=== PATIENT | male | born 1935 | race Caucasian/White ===

== ENCOUNTER 2021-02-16 13:01 | Outpatient (CLI) | payer MEDICARE, SELFPAY ==
--- NOTE | ~2021-02-16 | CT_ITS ---
EXAMINATION: CT brain wo con EXAM DATE: 02/16/2021 13:33 INDICATION: Dementia. TECHNIQUE: Spiral CT of the head was performed without contrast. Axial, coronal and sagittal images were reviewed. The dose-length product (DLP) for this examination was 605.33 mGy-cm. The exposure w as tailored according to patient size, and iterative reconstruction (ASIR) was used as additional dos e reduction technique. There is no prior study for comparison. FINDINGS: There is no acute intraparenchymal hemorrhage. No evidence of intraparenchymal brain mass lesion. No evidence of acute infarction. Please note that initial head CT has limited sensitivity f or small or acute infarctions. 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 There is mild femi ventricular and subcortical hypodensity, nonspecific but probably related to small vessel ischemic di sease. There is moderate prominence of the sulci and ventricles related to cerebral atrophy. Ther e is intracranial carotid arteriosclerosis. There are no extra-axial collections. There is no mass effect or midline shift. Patient has had bilateral ocular lens surgery. Soft tissue is unremarkable . The visualized sinuses and mastoid air cells are well aerated. IMPRESSION: Chronic age related findings. Reviewed, dictated and finalized at location B.
--- NOTE | ~2021-02-16 | US_ITS ---
EXAMINATION: US venous doppler [facility] DATE: 02/16/2021 13:54 INDICATION: Deep venous thrombosis TECHNIQUE: Grayscale ultrasound images without and with compression and Doppler ultrasound images of the bilateral lower extremity veins were obtained. COMPARISON: None. FINDINGS: The visualized portions of right common femoral vein, profunda (deep) femoral vein, paired femoral ve ins, popliteal vein, posterior tibial veins, peroneal veins, gastrocnemius vein and greater saphenous vein outflow are patent. There are also paired left femoral veins the more superficial of which appears patent and compressibl e. The deeper left femoral vein is only partially compressible with nonocclusive eccentric hypoechoic likely chronic thrombus with well-defined linear echogenic luminal margin. The visualized portions o f left common femoral vein, profunda femoral vein, popliteal vein, posterior tibial veins, peroneal v eins, gastrocnemius vein and greater saphenous vein outflow are patent. 4.5 x 1.7 x 1.4 cm anechoic B vanessa's cyst at the left popliteal fossa. IMPRESSION: 1. 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 No other definite anastomosis in the left lower limb. 2. No deep venous thrombosis in the right lower limb. 3. Small to moderate-sized left Chi's cyst. Reviewed, dictated and finalized at location A. IMPRESSION: 1. Peripheral nonocclusive likely chronic deep venous thrombosis along one of t he paired left femoral veins. No other definite anastomosis in the left lower l imb. 2. No deep venous thrombosis in the right lower limb. 3. Small to moderate-sized left Chi's cyst.
== END 2021-02-16 13:02 | disposition home or self-care (01) ==
PROVIDERS: PCP Internal Medicine; Visit Provider Internal Medicine
DX: Z86.718 Personal history of other venous thrombosis and embolism (principal); F03.90 Unspecified dementia, unspecified severity, without behavioral disturbance, psychotic disturbance, mood disturbance, and anxiety; I67.2 Cerebral atherosclerosis; I74.3 Embolism and thrombosis of arteries of the lower extremities
CPT/HCPCS: 70450; 93970

== ENCOUNTER 2021-05-15 14:57 | Outpatient (CLI) | payer MEDICARE, SELFPAY ==
--- NOTE | ~2021-05-15 | US_ITS ---
EXAMINATION: US venous doppler [facility] DATE: 05/15/2021 16:27 INDICATION: Left lower limb deep venous thrombosis TECHNIQUE: Grayscale ultrasound images without and with compression and Doppler ultrasound images of the left lower extremity veins were obtained. COMPARISON: None. FINDINGS: Small amount of noncompressible thrombus at the proximal most left greater saphenous at its complex w ith a left common femoral vein. The immediately more proximal left common femoral vein and visualized more distal greater saphenous vein remain patent and compressible. The visualized portions of profun da (deep) femoral vein, popliteal vein, peroneal veins, posterior tibial veins and gastrocnemius vein are patent. Unchanged peripheral nonocclusive likely chronic thrombus at the midportion of the deepe r left femoral vein. A second more superficial left femoral vein remains patent. 3.5 x 2.0 x 1.1 cm a nechoic Chi's cyst at the left popliteal fossa. IMPRESSION: 1. Small region of noncompressible thrombus at the proximal most left greater saphenous vein which i s not appreciated on the prior study and which may be acute. This would generally be considered equiv alent of deep venous thrombosis. 2. Unchanged chronic peripheral nonocclusive thrombus along one of the paired left femoral veins. 3. Small left Chi's cyst. Reviewed, dictated and finalized at location A. [facility]OR INTERNAL CONTROL IMPRESSION: 1. Small region of noncompressible thrombus at the proximal most left greater saphenous vein which is not appreciated on the prior study and which may be acu te. This would generally be considered equivalent of deep venous thrombosis. 2. Unchanged chronic peripheral nonocclusive thrombus along one of the paired l eft femoral veins. 3. Small left Chi's cyst.
== END 2021-05-15 14:58 | disposition home or self-care (01) ==
LOC: ANHIMG 15:04
PROVIDERS: PCP Internal Medicine; Visit Provider Internal Medicine
DX: M70.22 Olecranon bursitis, left elbow (principal); I82.412 Acute embolism and thrombosis of left femoral vein
CPT/HCPCS: 93971

== ENCOUNTER 2021-12-26 11:15 | Emergency (ER) | payer MEDICARE, SELFPAY ==
[2021-12-26] VITALS (23 sets, daily range): BP systolic 128–149; BP diastolic 43–98; PULSE 70–94; RESP 13–23; O2SAT 92–100
--- NOTE | ~2021-12-26 | CT_ITS ---
EXAMINATION: CT brain wo con DATE: 12/26/2021 12:23 INDICATION: Increased confusion. Altered mental state. TECHNIQUE: Computed tomography (CT) of the head was performed without intravenous contrast. The mA wa s adjusted according to patient size. Iterative reconstruction technique was employed. Exam dose: 60 5.33 mGy-cm total exam DLP. COMPARISON: 02/16/2021 CT brain FINDINGS: Prominent bilateral vertebral artery, basilar artery and bilateral carotid siphon internal carotid artery calcifications. There is nonspecific diminished attenuation of the cerebral white lars er, likely due to chronic small vessel ischemic changes. Cavum cavum septum pellucidum and cavum per day, anatomic variants. No intracranial mass lesion or hemorrhage or cerebrovascular accident, midline shift or mass effect i s noted Stable moderately prominent cerebral and cerebellar volume loss.. No subdural or epidural hematoma. Included paranasal sinuses and the mastoid air cells are normally developed and aerated. No fracture or bone destruction of the cranial vault. IMPRESSION: Cerebral atherosclerosis and chronic small vessel ischemic changes of the cerebral white matter No acute intracranial finding or significant change since 02/16/2021 Reviewed, dictated and finalized at Location A. Reviewed, dictated and finalized at location A.
--- NOTE | 2021-12-26 11:23 | ECG_ITS ---
Measurements Intervals [place] Rate: 73 P: 36 CT: 199 QRS: -10 QRSD: 94 T: 36 QT: 363 QTc: 402 Interpretive Statements SINUS RHYTHM NORMAL ECG Electronically Signed On 12-26-2021 12:00:03 CDT by Devin Allen D.O.
[2021-12-26 11:34] LABS: Basophils Percent Auto 0.4 % (0.2-1.2); Eosinophils Absolute Auto 0.1 K/mm3 (0-0.3); Eosinophils Percent Auto 1.1 % (0-4.4); Hematocrit 41.6 % (42.0-52.0); Hemoglobin 14.3 g/dL (14.0-18.0); Immature Granulocyte Absolute 0.03 K/mm3 (0.00-0.031); Immature Granulocyte Percent A 0.6 % (0-0.5); Lymphocytes Absolute Auto 0.98 K/mm3 (0.9-3.2); Lymphocytes Percent Auto 18.8 % (18.3-44.2); Mean Corpuscular HGB Conc 34.4 g/dl (32-36); Mean Corpuscular Hemoglobin 32.2 pg (26-34); Mean Corpuscular Volume 93.7 fl (80-100); Mean Platelet Volume 8.8 fl (7.4-10.4); Monocytes Absolute Auto 0.3 K/mm3 (0.1-0.6); Monocytes Percent Auto 5.2 % (2.6-8.5); Neutrophils Absolute Auto 3.9 K/mm3 (1.3-6.7); Neutrophils Percent Auto 73.9 % (45.5-73.1); Platelet Count Result 171 k/mm3 (150-375); Red Blood Count 4.44 M/mm3 (4.6-6.20); White Blood Count 5.2 K/mm3 (4.5-10.0)
[2021-12-26 11:46] LABS: Alanine Aminotransferase 29 U/L (6-50); Albumin Level 4.2 g/dL (3.5-5.1); Alkaline Phosphatase 77 U/L (38-126); Anion Gap 6 mmol/L (8-16); Aspartate Amino Transferase 34 U/L (17-59); Bilirubin,Total 1.3 mg/dL (0.2-1.3); Blood Urea Nitrogen 19 mg/dL (9-20); Calcium 9.8 mg/dL (8.4-10.2); Carbon Dioxide 32 mmol/L (22-30); Chloride 99 mmol/L (98-107); Estimated CRCL calculation 43 ml/min; Estimated Glomerular Filt Rate > 60; Glucose 194 mg/dL (65-110); Potassium 4.1 mmol/L (3.4-5.0); Sodium 137 mmol/L (137-145)
[2021-12-26 11:49] LABS: INR 1.3; Prothrombin Time 15.2 Seconds (11.1-14.7)
[2021-12-26 11:50] LABS: Partial Thromboplastin Time 33.6 SECONDS (22.3-36.8)
--- NOTE | 2021-12-26 11:51 | ED.AMS ---
HPI - Altered Mental Status General Chief Complaint: Altered Mental Status Stated Complaint: Altered Time Seen by Provider: 12/26/21 11:40 History of Present Illness HPI narrative: 86-year-old male sent in from his memory care facility secondary to not acting right . Patient is got underlying history of some dementia. He is extremely pleasant and talkative. 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 He states he was 3 or 4 times and I am not sure if I am right now or not . States he had 4 children. He has no specific complaints. His vital signs of been normal. He not complaining of any chest pain or shortness of breath. Said no nausea vomiting diarrhea constipation. Related Data Home Medications Medication Instructions Recorded Confirmed apixaban 5 mg tablet (Eliquis) 5 mg PO BID 12/26/21 cyanocobalamin (vitamin B-12) 100 100 mcg PO DAILY 12/26/21 mcg tablet donepezil 5 mg tablet 5 mg PO HS 12/26/21 furosemide 20 mg tablet 20 mg PO DAILY 12/26/21 glipizide 2.5 mg tablet, extended 2.5 mg PO DAILY 12/26/21 release 24 hr latanoprost 0.005 % eye drops 1 drp EACH EYE QPM 12/26/21 lisinopril 40 mg tablet 40 mg PO DAILY 12/26/21 multivit with min-folic tablet PO 12/26/21 acid-lutein 200 mcg-137.5 mcg chewable tablet (Adult Multivitamin (w-lutein)) Allergies Allergy/AdvReac Type Severity Reaction Status Date / Time No Known Allergies Allergy Verified 12/26/21 11:29 Review of Systems Review of Systems: ROS unobtainable: Yes unobtainable due to mental status PMFSH Past Medical History Medical History (Updated 12/26/21 @ 12:46 by Andriy Decker DO) Dementia Social History Social History (Updated 12/26/21 @ 11:52 by Andriy Decker DO) Living arrangements: group home Exam Narrative: APPEARANCE: Well appearing, no pain or distress, well-nourished. Head Normocephalic and atraumatic. EYES: PERRLA/EOMI, conjunctivae clear. NOSE: Normal with no drainage EARS:TMS clear with Fisher, with good light reflex. THROAT: Pharynx clear, no exudate. NECK: Supple. No adenopathy, no masses. RESPIRATORY: Airway patent, respirations nonlabored. Clear to auscultation bilaterally, no rales, rhonchi, wheezing. CARDIOVASCULAR: Regular rate and rhythm without murmurs, rubs, or gallops. ABDOMINAL: Soft, nontender, nondistended, no hepatosplenomegaly Musculoskeletal: Moves all extremities. Strength/ROM intact, No edema, No calf tenderness. NEURO: Alert. Cranial nerves II through XII intact. Normal gait. Good coordination. Nonfocal examination. SKIN:: Warm, dry. Normal Color PSYCHIATRIC: Normal affect/mood, normal interaction. Pleasantly confused Course Vital Signs Vital signs: Vital Signs Pulse Rate 83 12/26/21 11:17 Respiratory Rate 16 12/26/21 11:17 Blood Pressure 129/90 12/26/21 11:17 Pulse Oximetry 98 12/26/21 11:17 Oxygen Delivery Room Air 12/26/21 11:17 Pulse Rate 83 12/26/21 11:17 Respiratory Rate 16 12/26/21 11:17 Blood Pressure 129/90 12/26/21 11:17 Pulse Oximetry 98 12/26/21 11:17 Oxygen Delivery Room Air 12/26/21 11:17 MDM - Altered Mental Status MDM Narrative Medical decision making narrative: Patient was seen in from group home with underlying history of dementia with some not acting normal. Work-up and evaluation performed in emergency room shows no abnormalities. He is hemodynamically stable. Patient was safely discharged back to his facility. Lab Data Result diagrams: 12/26/21 11:25 12/26/21 11:25 Labs: Lab Results 12/26/21 12/26/21 12/26/21 Range/Units 11:25 11:25 11:25 WBC 5.2 (4.5-10.0) K/mm3 RBC 4.44 L (4.6-6.20) M/mm3 Hgb 14.3 (14.0-18.0) g/dL Hct 41.6 L (42.0-52.0) % MCV 93.7 (80-100) fl MCH 32.2 (26-34) pg MCHC 34.4 (32-36) g/dl RDW 12.0 (11.5-14.5) % Plt Count
[2021-12-26 12:41] LABS: Add Urine Microscopic? NO; Appearance Urine Clear (Clear); Bilirubin Urine Negative (Negative); Blood Urine Negative (Negative); Color Urine Yellow (Yellow); Glucose Urine UA Negative (Negative); Ketones Urine Negative (Negative); Leukocyte Esterase Ur Negative LEU/UL (Negative); Nitrate Urine Negative (Negative); Protein Urine Negative (Negative); Specific Grav Ur 1.015 (1.001-1.035); Urobilinogen Urine 0.2 mg/dL (<2.0)
== END 2021-12-26 14:45 ==
PROVIDERS: Emergency Provider Emergency Medicine; PCP Internal Medicine
DX: F03.90 Unspecified dementia, unspecified severity, without behavioral disturbance, psychotic disturbance, mood disturbance, and anxiety (principal); R41.0 Disorientation, unspecified; Z79.01 Long term (current) use of anticoagulants; Z79.84 Long term (current) use of oral hypoglycemic drugs
CPT/HCPCS: 36415; 70450; 80053; 81003; 85025; 85610; 85730; 93005; 99284

== ENCOUNTER 2023-12-08 18:48 | Emergency (ER) | payer MEDICARE, SELFPAY ==
--- NOTE | ~2023-12-08 | CT_ITS ---
EXAMINATION: CT brain wo con DATE: 12/08/2023 19:57 INDICATION: Altered mental status. TECHNIQUE: Computed tomography (CT) of the head was performed without intravenous contrast. The mA wa s adjusted according to patient size. Iterative reconstruction technique was employed. The dose-lengt h product was 605.33 mGy-cm. COMPARISON: Head CT 12/26/2021 FINDINGS: There is an old infarct in left parietal lobe. There are scattered areas of low attenuation in the cerebral white matter, which is within normal limits for the patient's age. There is no intra cranial hemorrhage, acute infarction, or abnormal intracranial mass lesion. There is an old infarct i n the right thalamus. The ventricles are normal in size. Cavum septum pellucidum and vergae are noted . There are likely changes of ocular lens replacement surgeries. There is mild mucosal thickening in the ethmoid sinuses. The mastoid air cells are normal. IMPRESSION: 1. 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 Reviewed, dictated and finalized at location E.
--- NOTE | ~2023-12-08 | XR_ITS ---
EXAMINATION: XR chest 1V portable DATE: 12/08/2023 19:40 INDICATION: Altered mental status. TECHNIQUE: A single frontal view of the chest was obtained. COMPARISON: None. FINDINGS: There are airspace opacities at left lung base. No pleural effusion or pneumothorax. The he art size is normal. IMPRESSION: 1. Airspace opacities at left lung base, consistent with atelectasis versus pneumonia. Reviewed, dictated and finalized at location E. IMPRESSION: 1. Airspace opacities at left lung base, consistent with atelectasis versus pne umonia.
[2023-12-08 18:49] VITALS: BP 97/65; PULSE 84; RESP 17; O2SAT 96
[2023-12-08 18:56] VITALS: O2SAT 97
--- NOTE | 2023-12-08 19:22 | ECG_ITS ---
Test Date: 2023-12-08 19:32:08 Measurements Intervals [place] Rate: 76 P: 37 IN: 212 QRS: -9 QRSD: 93 T: 23 QT: 356 QTc: 400 Interpretive Statements SINUS RHYTHM WITH FIRST DEGREE AV BLOCK LOW QRS VOLTAGE IN PRECORDIAL LEADS [QRS DEFLECTION < 1.0 mV IN CHEST LEADS] MINIMAL VOLTAGE CRITERIA FOR LVH, CONSIDER NORMAL VARIANT [MEETS CRITERIA IN ONE OF: R(aVL), S(V1), R(V5), R(V5/V6)+S(V1)] BORDERLINE ECG No previous ECG available for comparison Electronically Signed On 12-09-2023 07:25:59 CDT by Renny De Guzman M.D.
[2023-12-08 19:45] LABS: Glucose Point of Care 240 mg/dl (65-105)
[2023-12-08 20:01] LABS: Basophils Percent Auto 0.5 % (0.2-1.2); Eosinophils Absolute Auto 0.1 K/mm3 (0-0.3); Eosinophils Percent Auto 2.9 % (0-4.4); Hematocrit 36.1 % (42.0-52.0); Hemoglobin 12.7 g/dL (14.0-18.0); Immature Granulocyte Absolute 0.01 K/mm3 (0.00-0.031); Immature Granulocyte Percent A 0.2 % (0-0.5); Lymphocytes Absolute Auto 1.06 K/mm3 (0.9-3.2); Lymphocytes Percent Auto 23.9 % (18.3-44.2); Mean Corpuscular HGB Conc 35.2 g/dl (32-36); Mean Corpuscular Hemoglobin 32.6 pg (26-34); Mean Corpuscular Volume 92.6 fl (80-100); Mean Platelet Volume 9.3 fl (7.4-10.4); Monocytes Absolute Auto 0.3 K/mm3 (0.1-0.6); Monocytes Percent Auto 5.9 % (2.6-8.5); Neutrophils Percent Auto 66.6 % (45.5-73.1); Platelet Count Result 144 k/mm3 (150-375); Red Cell Distribution Width 12.2 % (11.5-14.5); White Blood Count 4.4 K/mm3 (4.5-10.0)
[2023-12-08] MEDS: SODIUM CHLORIDE 0.9% IV 1,000 ML 999 ML IV CONT (20:04)
[2023-12-08 20:11] LABS: Lipase 53 U/L (23-300); Magnesium 1.8 mg/dL (1.6-2.3); Phosphorus 3.2 mg/dL (2.5-4.5)
[2023-12-08 20:11] LABS: Ethanol < 10 mg/dL (<10)
[2023-12-08 20:12] LABS: Alanine Aminotransferase 24 U/L (6-50); Alkaline Phosphatase 96 U/L (38-126); Anion Gap 5 mmol/L (4-12); Aspartate Amino Transferase 26 U/L (17-59); Blood Urea Nitrogen 32 mg/dL (9-20); Calcium 9.4 mg/dL (8.4-10.2); Carbon Dioxide 30 mmol/L (22-30); Chloride 103 mmol/L (98-107); Estimated Glomerular Filt Rate 52; Glucose 233 mg/dL (65-110); INR 1.3; Potassium 3.9 mmol/L (3.4-5.0); Prothrombin Time 16.9 Seconds (11.1-14.7); Sodium 138 mmol/L (137-145)
[2023-12-08 20:13] LABS: Lactic Acid Reflex 0.9 mmol/L (0.7-2.0); Partial Thromboplastin Time 32.7 Seconds (22.3-36.8)
[2023-12-08 20:23] LABS: Influenza A QL RT-PCR Negative (Negative); Influenza B QL RT-PCR Negative (Negative); RSV RNA, RT-PCR Negative (Negative); SARS-CoV-2 RNA PCR Negative (Negative)
[2023-12-08 20:23] LABS: Troponin I < 0.012 ng/mL (0.000-0.034)
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
[2023-12-08 20:29] LABS: Appearance Urine Clear (Clear); Bilirubin Urine Negative (Negative); Blood Urine Negative (Negative); Color Urine Yellow (Yellow); Glucose Urine UA Negative (Negative); Ketones Urine Negative (Negative); Leukocyte Esterase Ur Negative LEU/UL (Negative); Nitrate Urine Negative (Negative); Protein Urine Negative (Negative); Specific Grav Ur 1.008 (1.001-1.035); Urobilinogen Urine 0.2 mg/dL (<2.0)
[2023-12-08 20:40] LABS: Add Urine Microscopic? NO
[2023-12-08 20:45] LABS: Amphetamine Screen Urine Negative (Negative); Barbiturate Screen Urine Negative (Negative); Benzodiazepines Screen Urine Negative (Negative); Cannabinoid Screen Urine Negative (Negative); Cocaine Screen Urine Negative (Negative); Methadone Screen Urine Negative (Negative); Opiate Screen Urine Negative (Negative); Phencyclidine Screen Urine Negative (Negative)
[2023-12-08 22:28] VITALS: BP 114/76; PULSE 72; RESP 12; O2SAT 100
[2023-12-08 23:01] LABS: Troponin I < 0.012 ng/mL (0.000-0.034)
--- NOTE | 2023-12-08 23:01 | PC.NURSE ---
[id number]- Spoke with Crisis intervention about the patient. since patient only has a diagnosis of dementia they do not come out and evaluate. MD aware and attempts were made to discuss this information with Nurses or staff at [facility] and was informed by Berna that there is no nurses on staff tonight and provided a phone number to a traffic manager that went to a generic voice mail. Patient has been pleasant but confused. patient unable to answer orientation questions appropriately. patient has been continent. patient has stayed in bed but does have a bed alarm applied and tested.
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
--- NOTE | 2023-12-08 23:33 | PC.NURSE ---
Called [facility] and per Minda the patient cannot come back. Informed [facility] that EDP Dr. Adam spoke with [place] director Rina. Minda will call Rina and call us back.
[2023-12-08] MEDS: QUEtiapine FUMARATE 25 MG TABLET 50 MG PO (23:34)
== END 2023-12-09 02:23 ==
PROVIDERS: Student in an Organized Health Care Education/Training Program; Emergency Provider Emergency Medicine; PCP Internal Medicine
DX: F03.911 Unspecified dementia, unspecified severity, with agitation (principal); Z20.822 Contact with and (suspected) exposure to COVID-19; I10 Essential (primary) hypertension; Z79.01 Long term (current) use of anticoagulants; Z79.84 Long term (current) use of oral hypoglycemic drugs; Z79.899 Other long term (current) drug therapy; I44.0 Atrioventricular block, first degree
CPT/HCPCS: 36415; 70450; 71045; 80053; 80307; 81003; 82948; 83605; 83690; 83735; 84100; 84484; 85025; 85610; 85730; 87040; 87637; 93005; 96360; 99284; A9270; J7030